=== PATIENT | male | born 1970 | race Asian ===

== ENCOUNTER 2016-11-08 11:03 | Observation (INO) | payer BC ==
[2016-11-08 12:48] LABS: Hematocrit 46 % (42-52); Hemoglobin 14.7 g/dl (14.0-18.0); Mean Corpuscular HGB Conc 32 g/dl (31-36); Mean Corpuscular Hemoglobin 26 pg (27-31); Mean Corpuscular Volume 81 fL (80-94); Mean Platelet Volume 9 um3 (7.4-10.4); Red Blood Count 5.66 10^6/ul (4.0-5.4); Red Cell Distribution Width 13 % (10.5-15)
[2016-11-08 12:56] LABS: Urine Bilirubin Negative (Negative); Urine Glucose Negative (Negative); Urine Nitrite Negative (Negative)
[2016-11-08 13:01] LABS: ALT 30 U/L (7-52); AST 25 U/L (13-39); Albumin 4.5 g/dL (3.2-5.2); Alkaline Phosphatase 65 U/L (34-104); Anion Gap 7 mmol/L (2-11); BUN/Creatinine Ratio 15.5 (8-20); Blood Urea Nitrogen 15 mg/dL (6-24); C Reactive Protein < 1.00 mg/L (< 5.00); CO2 Carbon Dioxide 27 mmol/L (22-32); Calcium 9.2 mg/dL (8.6-10.3); Chloride 104 mmol/L (101-111); Creatine Kinase 118 U/L (10-223); EGFR African American 106.7 (>60); Globulin 3.2 g/dL (2-4); Glucose 93 mg/dL (70-100); Magnesium 2.1 mg/dL (1.9-2.7); Potassium 3.7 mmol/L (3.5-5.0); Sodium 138 mmol/L (133-145); Total Protein 7.7 g/dL (6.4-8.9)
[2016-11-08 13:17] LABS: Benzodiazepine Urine Screen None Detected (None Detect)
--- NOTE | 2016-11-08 13:34 | RAD ---
HISTORY: Ataxia COMPARISONS: MRI dated October 16, 2016 TECHNIQUE: Multiple contiguous axial CT scans were obtained of the head without intravenous contrast. FINDINGS: HEMORRHAGE/INFARCT: There is no hemorrhage or acute infarct. MASSES/SHIFT: There is no mass or shift. EXTRA-AXIAL SPACES: There are no extra-axial fluid collections. SULCI AND VENTRICLES: The sulci and ventricles are normal in size and position for the patient's stated age. CEREBRUM: There is stable low-attenuation of the left insula corresponding to the findings noted on previous MRI. BRAINSTEM: There are no focal parenchymal abnormalities. CEREBELLUM: There are no focal parenchymal abnormalities. VESSELS: The vessels are grossly normal. PARANASAL SINUSES: The paranasal sinuses are clear. ORBITS: The orbits are unremarkable. BONES AND SOFT TISSUE: No bone or soft tissue abnormalities are noted. OTHER: None IMPRESSION: STABLE PARENCHYMAL CHANGES OF THE LEFT INSULA, UNCHANGED FROM PREVIOUS MRI. NO ACUTE INTRACRANIAL PATHOLOGY.
[2016-11-08 13:35] LABS: TSH (Thyroid Stimulating Horm) 1.28 mcIU/mL (0.34-5.60)
[2016-11-08] MEDS ORDERED: Acetaminophen TAB* 325 MG PO PRN (14:25)
[2016-11-08] MEDS ORDERED: NS 0.9% 1000 ML* 1,000 ML IV SCH (14:30)
[2016-11-08] MEDS ORDERED: Gadoteridol* (CONTRAST) 279.3 MG/ML 10 ML IV ONE (15:06)
--- NOTE | 2016-11-08 15:20 | CONS ---
CONSULTATION REPORT: DATE OF CONSULT: 11/08/16 PATIENT OF: Dr. San, Dr. Mata, Dr. Araujo. HISTORY OF PRESENT ILLNESS: This is a 46-year-old right-handed man who, in July, had onset, first in his foot, of clumsiness and weakness, then in his hand, with some mild speech difficulties appare ntly that then resolved, but had a workup, which included an abnormal MRI scan. He had seen Dr. Constantin colón, but they noticed, in September, the workup is incomplete, but he was then referred to Dr. Araujo f or this lesion. The MRI scan showed, which I have also reviewed and was repeated on 10/16/16, eleva judy T2 FLAIR signal on the left insula and posterior frontal hudson radiata. This was thought to be minimal progression since August 2016 and some minimal enhancement of this lesion. To my eye the le filiberto radiated centrally from the ventricle. He has been in good neurological health up until 9 o'clock this morning when he had sudden onset of dizziness and staggering. He has had some nausea with this. No headache. No numbness or weakness. No visual symptoms. This has persisted to the current time. He feels like he staggers off to eit her side. It is worse with position. He has never had this before. Of note, he is on Eliquis and on aspirin 81 mg every day. He is also on lisinopril half of a 10 mg pill every day, and atorvastatin for apparently hyperlipidemia. He also has an atrial septal defect according to Dr. San's incomplete note. SOCIAL HISTORY: He drinks occasionally. He does not smoke. FAMILY HISTORY: Hypertension in both parents and a stroke in the father. REVIEW OF SYSTEMS: Negative in all 14 spheres other than the HPI. PHYSICAL EXAM: Temperature 98.6, pulse 67, respirations 18, blood pressure 150/92. He is alert and oriented with normal speech and comprehension. There was no nystagmus seen when I evaluated him. C ranial nerves II through XII were intact. Fundi were benign. Motor exam revealed normal tone, stren gth, coordination, normal [id number], no problems with rapid alternating hand movements to eithe r side. When he walked he became vertiginous, but had no nystagmus and no past pointing, but he tend ed to veer in either direction. Per Dr. Mata he tended to go to the right side. Reflexes were 1+ with downgoing toes. Sensation is intact to light touch. Chest: Clear. Cardiovascular: Regular r ate and rhythm. Abdomen is soft, with positive bowel sounds. 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 I do not think that this is what it is going to be the case. I have a call in to Dr. Araujo to see what he had thought of this man . It is possible he is throwing clot from his AFib and if that is the case we will need to pursue t hat further, but low-grade neoplasm is also raised in the differential and I discussed this with Dr. Araujo. I am also concerned if this could be demyelinating disease, to my eye the MRI scan lesion was readily oriented to the ventricle suggesting a single demyelinating spot and depending on what I talk to Dr. Araujo about. I will discuss whether we should get MRI scan with and without contrast as the next step after the CT scan or a CTA looking for arterial thrombosis. Thank you for sharing his case. [id number]/[facility] #: [id number]
--- NOTE | 2016-11-08 15:28 | CONS ---
CONSULTATION: ADDENDUM: DATE OF CONSULTATION: 11/08/[address] Araujo who said that although it is possible that the lesion on MRI scan is a stroke , it does not appear to be, and he is following for a tumor and agrees that MS will be a possibility . Given these concerns, he agrees with the plan of getting an MRI with and without contrast. [id number]/[facility] #: [id number]
--- NOTE | 2016-11-08 15:29 | RAD ---
HISTORY: Dizziness, basilar artery stenosis COMPARISONS: September 19, 2016 TECHNIQUE: 3-D axial [id number] MR angiography was performed of the head to include the skull valley of Christopher. Multiple 3-D maximum intensity projection reconstructions are also submitted for review. FINDINGS: RIGHT VERTEBRAL ARTERY: The distal right vertebral artery is unremarkable, without stenosis. LEFT VERTEBRAL ARTERY: The distal left vertebral artery is unremarkable, without stenosis. DOMINANCE: The vertebral arteries are codominant. DISTAL RIGHT CERVICAL INTERNAL CAROTID ARTERY: The distal right cervical internal carotid artery is unremarkable. DISTAL LEFT CERVICAL INTERNAL CAROTID ARTERY: The distal left cervical internal carotid artery is unremarkable. INTRACRANIAL CIRCULATION: There is no aneurysm, vascular malformation, occlusion, or stenosis of the visualized intracranial circulation. The anterior communicating artery complex is clear. Bilateral posterior communicating arteries are identified. The posterior communicating arteries are dominant over the P1 segments of the posterior cerebral arteries bilaterally. OTHER FINDINGS: None IMPRESSION: NO ANEURYSM, VASCULAR MALFORMATION, OCCLUSION, OR STENOSIS OF THE VISUALIZED INTRACRANIAL CIRCULATION.
--- NOTE | 2016-11-08 15:32 | RAD ---
HISTORY: Dizziness COMPARISONS: November 08, 2016 TECHNIQUE: The following sequences were obtained of the head: Sagittal T1-weighted images, axial T2-weighted images, axial FLAIR images, axial susceptibility weighted images, axial T1-weighted images. Additionally, axial diffusion-weighted images were obtained with calculated apparent diffusion coefficients. Additionally, sagittal, coronal, and axial T1-weighted images were obtained after contrast enhancement with a gadolinium-based intravenous contrast agent. FINDINGS: HEMORRHAGE/INFARCT: There is no hemorrhage or acute infarct. MASSES/SHIFT: There is no mass or shift. EXTRA-AXIAL SPACES/MENINGES: There are no extra-axial fluid collections. SULCI AND VENTRICLES: The sulci and ventricles are normal in size and position for the patient's stated age. CEREBRUM: Again noted is minimally enhancing region of elevated T2/FLAIR signal within the left insula and posterior frontal hudson radiata. This is stable BRAINSTEM: There are no focal parenchymal abnormalities. CEREBELLUM: There are no focal parenchymal abnormalities. The cerebellar tonsils are normal in size and position. SELLA: The sella is normal. PINEAL: The pineal region is clear. CP ANGLE/TEMPORAL BONES: The labyrinthine structures are grossly normal. VESSELS: Normal flow-voids are noted within the visualized vertebral vasculature. DIFFUSION ABNORMALITIES: There are no diffusion abnormalities. PARANASAL SINUSES/MASTOIDS: The paranasal sinuses are clear. ORBITS: The orbits are unremarkable. BONES AND SOFT TISSUE: No bone or soft tissue abnormalities are noted. OTHER: Elsewhere, there is no abnormal enhancement IMPRESSION: STABLE MINIMALLY ENHANCING AREA OF ELEVATED T2/FLAIR SIGNAL WITHIN THE LEFT INSULA AND POSTERIOR FRONTAL HUDSON RADIATA
--- NOTE | 2016-11-08 18:14 | HP ---
CC: Mya Arshad MD; Dr. Ruiz; Dr. San; Dr. Araujo from Neurosurgery Department at [facility]; Dr. Pope * HISTORY AND PHYSICAL: DATE OF ADMISSION: 11/08/16 PRIMARY CARE PROVIDER: Mya Arshad MD. CHIEF COMPLAINT: Unsteady gait and dizziness. HISTORY OF PRESENT ILLNESS: Mr. Maria is a 46-year-old male who has history of hypertension and TIA in July 2016. During further evaluation as of the cause of the TIA, the patient had a Holter monitor that showed an episode of atrial fibrillation and in September 2016, the patient was placed on Eliquis for anticoagulation. 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 A followup MRI obtained on 10/16/16, though showed "elevated T2 FLAIR signal within the left insula and posterior frontal hudson radiata. There has been minimal progression compared with August 2016. There is minimal linear subcortical enhancement in the region as well." It was noted that the etiology was unclear, but differential included focal encephalitis and/or vasculitis, low-grade neoplasm or demyelinating disease, but less likely a subacute infarct. Dr. San saw the patient for neurology followup and recommended Neurosurgery evaluation which happened actually yesterday. Dr. Araujo saw the patient from Neurosurgery and noted that the etiology of the patient's MRI abnormality is unclear and recommended a followup MRI in 4 months. The patient had been feeling at his baseline. His symptoms that occurred in July 2016 resolved within 8 hours and were noted to be right-sided weakness and expressive aphasia. Since then, the patient had been doing fine. Once again, started on Eliquis in September. Today in the morning, the patient was working at [employer] at the [employer]. He stated he was walking around and all of a sudden, he noticed being very dizzy and nauseated. He came in to the ED for evaluation. Here, he noted to have ataxic gait. He is no longer complaining of nausea. The patient was seen by Dr. Ruiz in consultation. Dr. Ruiz recommended an MRI of the brain as well as MRA of the head and observation. PAST MEDICAL HISTORY: 1. History of abnormality in the left insular region and the patient's brain as mentioned above with the differential as mentioned above including demyelinating disease, low-grade neoplasm, less likely an old stroke. 2. History of paroxysmal atrial fibrillation, on Eliquis. 3. Hypertension. MEDICATIONS: Include: 1. Eliquis 5 mg b.i.d. 2. Lisinopril 5 mg daily. 3. Lipitor 20 mg daily. ALLERGIES: No known drug allergies. FAMILY HISTORY: Positive for father with hypertension and stroke. Mother with stroke at the age of 6363 years old who was of it. SOCIAL HISTORY: The patient lives with his . He works at [employer] in [employer]. He has no history of tobacco use. He drinks alcoholic beverages occasionally. His surrogate is his . He is originally from [facility]. REVIEW OF SYSTEMS: Please see history of present illness. In addition to the above mentioned, the patient complains of no headache. No double vision. He denies any one-sided weakness. He states that his dizziness feels as if you were "on a ship." He denies nausea, although he had nausea earlier in the morning. He denies any abdominal pain. All the remaining 14 systems were reviewed with the patient and were otherwise negative. PHYSICAL EXAMINATION GENERAL: The patient is a very pleasant 46-year-old male who is in no acute distress. Alert, awake, and oriented x3. VITAL SIGNS: Blood pressure of 125/88, heart rate of 59 and regular, respiratory rate 16, O2 saturation 100% on room air, temperature 98.5. HEENT: Head: Atraumatic, normocephalic. Eyes: Pupils equal, reactive to light and accommodation. Oropharynx clear. Mucosa moist. NECK: Supple. No JVD, no bruit bilaterally. RESPIRATORY: Clear to auscultation bilaterally. CARDIOVASCULAR: Regular rate and rhythm. No murmur. ABDOMEN: Soft, nontender. Bowel sounds present in all 4 quadrants. EXTREMITIES: There is no edema. Pulses are +2 bilaterally. No clubbing or cyanosis. NEUROLOGIC EVALUATION: Speech clear. Cranial nerves II through XII grossly intact. Motor strength is 5/5 bilaterally. There was no nystagmus on extraocular muscles evaluation. Vnbgda-ol-ppuv is not dysmetric bilaterally. There is no pronator drift. Ffva-ia-cuzt is not dysmetric bilaterally. The patient has a wide ataxic gait. Sensation is grossly intact. PSYCHIATRIC EVALUATION: Oriented x2. No evidence of anxiety or depression. LABORATORY DATA/DIAGNOSTIC STUDIES: Showed a white blood cell count of 5.0, hemoglobin of 14.7, hematocrit of 46, platelets of 206,000. Sodium of 138, potassium 3.7, chloride 104, carbon dioxide 27, BUN 15, creatinine 0.97. Liver function tests unremarkable. C-reactive protein of below 1. Brain natriuretic peptide was 51. TSH of 1.28. Brain MRI, impression: "Stable minimally enhancing area of elevated T2 FLAIR signal within the left insula and posterior frontal hudson radiata." Head MRA, impression: "No aneurysm, vascular malformation, occlusion, or stenosis of the visualized intracranial circulation." Brain CT, impression: "Stable parenchymal changes of the left insula. Unchanged from previous MRI. No acute intracranial pathology." ASSESSMENT AND PLAN: A 46-year-old male with history of abnormality on the MRI of the brain dating back to August 2016, who presents to the hospital with ataxic gait. At this time, the patient is going to be placed on overnight observation with neuro checks every 2 hours. He is going to be continued on Eliquis as previously taken. Dr. Ruiz saw the patient in evaluation and the case was discussed with Neurology. In regards to history of paroxysmal atrial fibrillation, today's EKG showed the patient to be in sinus rhythm with a heart rate of 60 beats per minute with J- point elevation. At this point, the patient is going to be placed on telemetry monitored bed. We will continue Eliquis. In regards to dyslipidemia, the patient's LDL levels were not checked yet and I am going to do it tomorrow. We will continue the patient on his Lipitor. For DVT prophylaxis, the patient is fully anticoagulated with Eliquis. Code status: The patient's code status is full. The patient's surrogate is his . TIME SPENT: Approximately 72 minutes were spent on admission of this patient, more than half that time was spent dnsj-au-cucw with the patient during the interview and physical exam. [id number]/[facility] #: [id number] LATOYA
[2016-11-08] MEDS: Apixaban* 5 MG TAB PO SCH (21:12)
[2016-11-08] MEDS ORDERED: Heparin VIAL(*) 5000 UNITS/ML VIAL (FIVE THOUSAND) SUBCUT SCH (22:00)
[2016-11-09 06:59] LABS: Hematocrit 44 % (42-52); Hemoglobin 13.9 g/dl (14.0-18.0); Mean Corpuscular HGB Conc 32 g/dl (31-36); Mean Corpuscular Hemoglobin 26 pg (27-31); Mean Corpuscular Volume 82 fL (80-94); Mean Platelet Volume 9 um3 (7.4-10.4); Red Blood Count 5.38 10^6/ul (4.0-5.4); Red Cell Distribution Width 13 % (10.5-15)
[2016-11-09 07:07] LABS: BUN/Creatinine Ratio 16.7 (8-20); Calcium 8.9 mg/dL (8.6-10.3); HDL Cholesterol 49.4 mg/dL; Potassium 3.8 mmol/L (3.5-5.0)
[2016-11-09 08:40] VITALS: BP 117/75
[2016-11-09] MEDS ORDERED: Aspirin EC Low Dose* 81 MG TAB.EC PO SCH (09:00)
[2016-11-09] MEDS ORDERED: Atorvastatin* 20 MG TAB PO SCH (09:00)
[2016-11-09] MEDS: Apixaban* 5 MG TAB PO SCH (09:03)
--- NOTE | 2016-11-09 10:04 | PN ---
Subjective Date of Service: 11/09/16 Interval History: Mr. Maria states that he is feeling very well this morning. He has had no further dizziness and is ambulating on the unit without difficulty. He denies chest pain, SOB, nausea, or abdominal pain. Objective Active Medications: Acetaminophen (Tylenol Tab*) 650 mg PO Q4H PRN Apixaban (Eliquis*) 5 mg PO BID JULES Atorvastatin Calcium (Lipitor*) 20 mg PO DAILY JULES Sodium Chloride (Ns 0.9% 1000 Ml*) 1,000 mls @ 125 mls/hr IV PER RATE [facility] Vital Signs 11/08/16 11/08/16 11/08/16 14:00 16:10 19:26 Temperature 98.5 F 98.3 F Pulse Rate 57 59 59 Respiratory 19 16 16 Rate Blood Pressure 119/71 125/88 118/71 (mmHg) O2 Sat by Pulse 99 100 99 Oximetry 11/08/16 11/08/16 11/09/16 20:00 23:28 03:19 Temperature 98.9 F 98.3 F Pulse Rate 52 53 Respiratory 16 16 16 Rate Blood Pressure 105/63 119/76 (mmHg) O2 Sat by Pulse 99 100 Oximetry 11/09/16 07:17 Temperature 99.2 F Pulse Rate 50 Respiratory 16 Rate Blood Pressure 117/75 (mmHg) O2 Sat by Pulse 100 Oximetry Oxygen Devices in Use Now: None Appearance: Male lying in bed in NAD Eyes: No Scleral Icterus Ears/Nose/Mouth/Throat: Mucous Membranes Moist Neck: Trachea Midline Respiratory: Symmetrical Chest Expansion and Respiratory Effort, Clear to Auscultation Cardiovascular: NL Sounds; No Murmurs; No JVD, No Edema Abdominal: NL Sounds; No Tenderness; No Distention Lymphatic: No Cervical Adenopathy Extremities: No Edema Skin: No Rash or Ulcers Neurological: Alert and Oriented x 3, NL Muscle Strength and Tone Nutrition: Taking PO's Result Diagrams: 11/09/16 05:54 11/09/16 05:54 Assess/Plan/Problems-Billing Assessment: Mr. Maria is a 46 yo male with a PMH of known MRI abnormality in left insular region as well as hypertension and paroxysmal afib who was admitted on 11/07/16 with concern for dizziness and gait ataxia. - Patient Problems (1) Dizziness Comment: Resolved. Suspect BPPV or labrynthitis. Appreciate neuro consult. MRI brain with unchanged flair signal in the left insular region. Patient following with Dr. Araujo with repeat MRI in 4 months to re-eval this area. No indication that this is a new stroke or responsible for his self-limited episode of dizziness. (2) Afib Comment: Patient in sinus rhythm. Continue eliquis. (3) DVT prophylaxis Comment: Eliquis (4) Full code status (5) Hypertension Comment: SBP well controlled. Resume lisinopril. Status and Disposition: OBV. Discharge to home.
--- NOTE | 2016-11-09 16:28 | DS ---
CC: Dr. Arshad; Dr. Araujo from Neurosurgery Department, [facility] * DISCHARGE SUMMARY: DATE OF ADMISSION: 11/08/16 DATE OF DISCHARGE: 11/09/16 PRIMARY CARE PHYSICIAN: Dr. Arshad. ATTENDING PHYSICIAN: Dr. Marielena Garcia * (dictation provided by Cierra Gerber NP ). PRIMARY DIAGNOSIS: Dizziness with suspected benign paroxysmal positional vertigo. SECONDARY DIAGNOSES: 1. History of abnormality in the left insular region, with differential diagnosis including demyelinating disease, low-grade neoplasm or less likely old stroke. 2. History of paroxysmal atrial fibrillation, on Eliquis. 3. Hypertension. MEDICATIONS AT THE TIME OF DISCHARGE: 1. Eliquis 5 mg p.o. b.i.d. 2. Lisinopril 5 mg daily. 3. Lipitor 20 mg daily. HOSPITAL COURSE: Mr. Maria is a 46-year-old male with past medical history as mentioned above, who presented to the hospital on 11/08/16 with concern for unsteady gait and dizziness. Please see the dictated H and P by Raiza Perez for complete details. In brief, the patient had known abnormality on MRI, showing elevated FLAIR signal in the left insular region and is following with Dr. Araujo in [place] with plans for repeat MRI in 4 months. On the day of admission, the patient developed dizziness with nausea and gait ataxia and therefore, presented to the emergency room. Mr. Maria was admitted to the hospital. He had a brain MRI, which was read as follows: "Stable, minimally enhancing area of elevated T2 FLAIR signal within the left insula and posterior frontal hudson radiata". CT brain was read as follows: "Stable parenchymal changes in the left insula, unchanged from previous MRI. No acute intracranial pathology." Head MRA was read as follows: "No aneurysm, vascular malformation, occlusion or stenosis of the visualized intracranial circulation." Patient's laboratory data revealed no acute abnormalities. His vital signs were stable. He was not orthostatic. Mr. Maria was observed in the hospital overnight. This morning, he is feeling much better. He has no dizziness. He has no lightheadedness. He is ambulating on the unit independently without gait ataxia. Given the self- limited nature of his symptoms, I suspect that perhaps he has benign paroxysmal positional vertigo or perhaps a case of labyrinthitis. Regardless, the patient' s signs and symptoms have resolved. During this hospitalization, he did receive consultation from Dr. Norman Ruiz from our neurological team. He recommended the MRI/MRA, which were completed, and showed no acute abnormality, and he also spoke with Dr. Araujo's office and verified that the plan was for the patient to follow up there in 4 months for MRI of the brain. Mr. Maria is medically stable for discharge to home today. DISPOSITION: Home. DIET: Low salt. ACTIVITY: As tolerated. FOLLOWUP PLANS: Please follow up with Dr. Araujo as arranged, in 4 months, for a repeat MRI of the brain to evaluate FLAIR signal noted in the left insular region. TIME SPENT: Approximately 60 minutes were spent on the discharge of this patient, more than the half the time was spent with the patient at the bedside reviewing the events leading up to this hospitalization, performing the physical examination, and reviewing my plan of care. CIERRA GERBER NP [id number]/[facility] #: [id number] LATOYA
--- NOTE | 2016-11-09 17:03 | ED ---
Asha Calderón Rebecca, scribed for Kostas Mata MD on 11/08/16 at 1143 . Dizziness - HPI Summary HPI Summary: Pt is a 46 y/o M who presents to ED c/o moderate dizziness. Episode occurred suddenly at 0900 while at work, working on a machine. Dizziness has been constant since onset. Sx aggravated by moving his head, alleviated by laying back and closing eyes. Denies SCHOFIELD. PMHx HTN, TIA. TIA was in July, he had a follow up MRI yesterday in [place], [place] with Dr. Araujo. - History Of Current Complaint Chief Complaint: EDDizziness Stated Complaint: DIZZINESS Time Seen by Provider: 11/08/16 11:29 Hx Obtained From: Patient Onset/Duration: Still Present, Suddenly Timing: Constant Severity Initially: Moderate Severity Currently: Moderate Character: Dizzy Aggravating Factor(s): Change In Head Position Alleviating Factor(s): Lying Down, Closing Eyes Associated Signs And Symptoms: Positive: Negative - Allergies/Home Medications Allergies/Adverse Reactions: Allergies Allergy/AdvReac Type Severity Reaction Status Date / Time No Known Allergies Allergy Verified 09/20/16 14:57 PMH/Surg Hx/FS Hx/Imm Hx Endocrine/Hematology History: Denies: Hx Diabetes Cardiovascular History: Reports: Hx Atrial Fibrillation, Hx Hypertension Denies: Hx Pacemaker/ICD History: Denies: Hx Renal Disease Sensory History: Denies: Hx Hearing Aid Neurological History: Reports: Hx Transient Ischemic Attacks (TIA) Psychiatric History: Denies: Hx Panic Disorder Infectious Disease History: Denies: Traveled Outside the [place] in Last 30 Days - Family History Known Family History: Positive: Other - stroke (mother) - Social History Occupation: Employed Full-time Alcohol Use: Occasionally Hx Substance Use: No Substance Use Type: Reports: None Smoking Status (MU): Never Smoked Tobacco Review of Systems Constitutional: Negative Eyes: Negative ENT: Negative Cardiovascular: Negative Respiratory: Negative Gastrointestinal: Negative Genitourinary: Negative Musculoskeletal: Negative Skin: Negative Neurological: Other - Dizziness Negative: Headache Psychological: Normal All Other Systems Reviewed And Are Negative: Yes Physical Exam - Summary Physical Exam Summary: VITAL SIGNS: Reviewed. GENERAL: ~Patient is a well-developed and nourished male who is lying comfortable in the stretcher. ~Patient is not in any acute respiratory distress. HEAD AND FACE: No signs of trauma. ~No ecchymosis, hematomas or skull depressions. No sinus tenderness. EYES: PERRLA, EOMI x 2, No injected conjunctiva, no nystagmus. No photophobia. EARS: Hearing grossly intact. Ear canals and tympanic membranes are within normal limits. MOUTH: Oropharynx within normal limits. NECK: Supple, trachea is midline, no adenopathy, no JVD, no carotid bruit, no c- spine tenderness, neck with full ROM. No meningeal signs, no Kernig's or brudzinskis signs. CHEST: Symmetric, no tenderness at palpation LUNGS: Clear to auscultation bilaterally. No wheezing or crackles. CVS: Regular rate and rhythm, S1 and S2 present, no murmurs or gallops appreciated. ABDOMEN: Soft, non-tender. No signs of distention. No rebound no guarding, and no masses palpated. Bowel sounds are normal. EXTREMITIES: FROM in all major joints, no edema, no cyanosis or clubbing. NEURO: Alert and oriented x 3. No acute neurological deficits except ataxia on ambulation. Speech is normal and follows commands. SKIN: Dry and warm ~ Triage Information Reviewed: Yes Vital Signs On Initial Exam: Initial Vitals BP 134/78 11/08/16 11:37 Vital Signs Reviewed: Yes Diagnostics - Vital Signs Vital Signs Temp Pulse Resp BP Pulse Ox 11/08/16 13:30 59 18 116/78 99 11/08/16 13:00 58 20 115/64 99 11/08/16 12:44 22 156/77 11/08/16 12:15 67 150/92 11/08/16 12:13 61 16 150/92 99 11/08/16 12:11 58 19 130/84 99 11/08/16 12:07 98.6 F 56 18 129/88 98 11/08/16 12:03 96 99 11/08/16 12:02 129/88 11/08/16 11:57 98.6 F 56 18 129/88 98 11/08/16 11:40 54 100 11/08/16 11:39 58 100 11/08/16 11:37 134/78 - Laboratory Lab Results: Lab Results 11/08/16 11/08/16 11/08/16 Range/Units 12:25 12:33 12:33 WBC 5.0 (3.5-10.8) 10^3/ul RBC 5.66 H (4.0-5.4) 10^6/ul Hgb 14.7 (14.0-18.0) g/dl Hct 46 (42-52) % MCV 81 (80-94) fL MCH 26 L (27-31) pg MCHC 32 (31-36) g/dl RDW 13 (10.5-15) % Plt Count 206 (150-450) 10^3/ul MPV 9 (7.4-10.4) um3 Neut % (Auto) 64.8 (38-83) % Lymph % (Auto) 26.1 (25-47) % [place] % (Auto) 7.1 (1-9) % Eos % (Auto) 1.1 (0-6) % Baso % (Auto) 0.9 (0-2) % Absolute Neuts (auto) 3.2 (1.5-7.7) 10^3/ul Absolute Lymphs (auto) 1.3 (1.0-4.8) 10^3/ul Absolute Monos (auto) 0.4 (0-0.8) 10^3/ul Absolute Eos (auto) 0.1 (0-0.6) 10^3/ul Absolute Basos (auto) 0 (0-0.2) 10^3/ul Absolute Nucleated RBC 0 10^3/ul Nucleated RBC % 0 APTT (26.0-36.3) seconds Carbon Monoxide Screen (<3.5) % Sodium 138 (133-145) mmol/L Potassium 3.7 (3.5-5.0) mmol/L Chloride 104 (101-111) mmol/L Carbon Dioxide 27 (22-32) mmol/L Anion Gap 7 (2-11) mmol/L BUN 15 (6-24) mg/dL Creatinine 0.97 (0.67-1.17) mg/dL Est GFR ( Amer) 106.7 (>60) Est GFR (Non-Af Amer) 83.0 (>60) BUN/Creatinine Ratio 15.5 (8-20) Glucose 93 (70-100) mg/dL Lactic Acid (0.5-2.0) mmol/L Calcium 9.2 (8.6-10.3) mg/dL Magnesium 2.1 (1.9-2.7) mg/dL Total Bilirubin 0.60 (0.2-1.0) mg/dL AST 25 (13-39) U/L ALT 30 (7-52) U/L Alkaline Phosphatase 65 (34-104) U/L Total Creatine Kinase 118 (10-223) U/L Troponin I 0.00 (<0.04) ng/mL C-Reactive Protein < 1.00 (< 5.00) mg/L B-Natriuretic Peptide ( - 100) pg/mL Total Protein 7.7 (6.4-8.9) g/dL Albumin 4.5 (3.2-5.2) g/dL Globulin 3.2 (2-4) g/dL Albumin/Globulin Ratio 1.4 (1-3) TSH 1.28 (0.34-5.60) mcIU/mL Urine Color Straw Urine Appearance Clear Urine pH 7.0 (5-9) Ur Specific [place] 1.004 L (1.010-1.030) Urine Protein Negative (Negative) Urine Ketones Negative (Negative) Urine Blood Negative (Negative) Urine Nitrate Negative (Negative) Urine Bilirubin Negative (Negative) Urine Urobilinogen Negative (Negative) Ur Leukocyte Esterase Negative (Negative) Urine Glucose Negative (Negative) Urine Opiates Screen (None Detect) Ur Barbiturates Screen (None Detect) Ur Phencyclidine Scrn (None Detect) Ur Amphetamines Screen (None Detect) U Benzodiazepines Scrn (None Detect) Urine Cocaine Screen (None Detect) U Cannabinoids Screen (None Detect) 11/08/16 11/08/16 11/08/16 Range/Units 12:33 12:33 12:33 WBC (3.5-10.8) 10^3/ul RBC (4.0-5.4) 10^6/ul Hgb (14.0-18.0) g/dl Hct (42-52) % MCV (80-94) fL MCH (27-31) pg MCHC (31-36) g/dl RDW (10.5-15) % Plt Count (150-450) 10^3/ul MPV (7.4-10.4) um3 Neut % (Auto) (38-83) % Lymph % (Auto) (25-47) % [place] % (Auto) (1-9) % Eos % (Auto) (0-6) % Baso % (Auto) (0-2) % Absolute Neuts (auto) (1.5-7.7) 10^3/ul Absolute Lymphs (auto) (1.0-4.8) 10^3/ul Absolute Monos (auto) (0-0.8) 10^3/ul Absolute Eos (auto) (0-0.6) 10^3/ul Absolute Basos (auto) (0-0.2) 10^3/ul Absolute Nucleated RBC 10^3/ul Nucleated RBC % APTT 36.1 (26.0-36.3) seconds Carbon Monoxide Screen (<3.5) % Sodium (133-145) mmol/L Potassium (3.5-5.0) mmol/L Chloride (101-111) mmol/L Carbon Dioxide (22-32) mmol/L Anion Gap (2-11) mmol/L BUN (6-24) mg/dL Creatinine (0.67-1.17) mg/dL Est GFR ( Amer) (>60) Est GFR (Non-Af Amer) (>60) BUN/Creatinine Ratio (8-20) Glucose (70-100) mg/dL Lactic Acid 1.6 (0.5-2.0) mmol/L Calcium (8.6-10.3) mg/dL Magnesium (1.9-2.7) mg/dL Total Bilirubin (0.2-1.0) mg/dL AST (13-39) U/L ALT (7-52) U/L Alkaline Phosphatase (34-104) U/L Total Creatine Kinase (10-223) U/L Troponin I (<0.04) ng/mL C-Reactive Protein (< 5.00) mg/L B-Natriuretic Peptide 51 ( - 100) pg/mL Total Protein (6.4-8.9) g/dL Albumin (3.2-5.2) g/dL Globulin (2-4) g/dL Albumin/Globulin Ratio (1-3) TSH (0.34-5.60) mcIU/mL Urine Color Urine Appearance Urine pH (5-9) Ur Specific [place] (1.010-1.030) Urine Protein (Negative) Urine Ketones (Negative) Urine Blood (Negative) Urine Nitrate (Negative) Urine Bilirubin (Negative) Urine Urobilinogen (Negative) Ur Leukocyte Esterase (Negative) Urine Glucose (Negative) Urine Opiates Screen (None Detect) Ur Barbiturates Screen (None Detect) Ur Phencyclidine Scrn (None Detect) Ur Amphetamines Screen (None Detect) U Benzodiazepines Scrn (None Detect) Urine Cocaine Screen (None Detect) U Cannabinoids Screen (None Detect) 11/08/16 11/08/16 Range/Units 12:33 12:48 WBC (3.5-10.8) 10^3/ul RBC (4.0-5.4) 10^6/ul Hgb (14.0-18.0) g/dl Hct (42-52) % MCV (80-94) fL MCH (27-31) pg MCHC (31-36) g/dl RDW (10.5-15) % Plt Count (150-450) 10^3/ul MPV (7.4-10.4) um3 Neut % (Auto) (38-83) % Lymph % (Auto) (25-47) % [place] % (Auto) (1-9) % Eos % (Auto) (0-6) % Baso % (Auto) (0-2) % Absolute Neuts (auto) (1.5-7.7) 10^3/ul Absolute Lymphs (auto) (1.0-4.8) 10^3/ul Absolute Monos (auto) (0-0.8) 10^3/ul Absolute Eos (auto) (0-0.6) 10^3/ul Absolute Basos (auto) (0-0.2) 10^3/ul Absolute Nucleated RBC 10^3/ul Nucleated RBC % APTT (26.0-36.3) seconds Carbon Monoxide Screen <3.5 (<3.5) % Sodium (133-145) mmol/L Potassium (3.5-5.0) mmol/L Chloride (101-111) mmol/L Carbon Dioxide (22-32) mmol/L Anion Gap (2-11) mmol/L BUN (6-24) mg/dL Creatinine (0.67-1.17) mg/dL Est GFR ( Amer) (>60) Est GFR (Non-Af Amer) (>60) BUN/Creatinine Ratio (8-20) Glucose (70-100) mg/dL Lactic Acid (0.5-2.0) mmol/L Calcium (8.6-10.3) mg/dL Magnesium (1.9-2.7) mg/dL Total Bilirubin (0.2-1.0) mg/dL AST (13-39) U/L ALT (7-52) U/L Alkaline Phosphatase (34-104) U/L Total Creatine Kinase (10-223) U/L Troponin I (<0.04) ng/mL C-Reactive Protein (< 5.00) mg/L B-Natriuretic Peptide ( - 100) pg/mL Total Protein (6.4-8.9) g/dL Albumin (3.2-5.2) g/dL Globulin (2-4) g/dL Albumin/Globulin Ratio (1-3) TSH (0.34-5.60) mcIU/mL Urine Color Urine Appearance Urine pH (5-9) Ur Specific [place] (1.010-1.030) Urine Protein (Negative) Urine Ketones (Negative) Urine Blood (Negative) Urine Nitrate (Negative) Urine Bilirubin (Negative) Urine Urobilinogen (Negative) Ur Leukocyte Esterase (Negative) Urine Glucose (Negative) Urine Opiates Screen None detected (None Detect) Ur Barbiturates Screen None detected (None Detect) Ur Phencyclidine Scrn None detected (None Detect) Ur Amphetamines Screen None detected (None Detect) U Benzodiazepines Scrn None detected (None Detect) Urine Cocaine Screen None detected (None Detect) U Cannabinoids Screen None detected (None Detect) Result Diagrams: 11/09/16 05:54 11/09/16 05:54 Lab Statement: Any lab studies that have been ordered have been reviewed, and results considered in the medical decision making process. - CT Brain CT CT Interpretation: No Acute Changes - STABLE PARENCHYMAL CHANGES OF THE LEFT INSULA, UNCHANGED FROM PREVIOUS MRI. NO ACUTE INTRACRANIAL PATHOLOGY. 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: Both Correctly Best Gaze (Only Horizontal Eye Movement): Normal Visual Field Testing: No Visual Loss Facial Paresis-Pt to Smile & Close Eyes or Grimace Symmetry: Normal/Symmetrical Motor Function - Right Arm: No Drift-Holds 10 Seconds Motor Function - Left Arm: No Drift-Holds 10 Seconds Motor Function - Right Leg: No Drift-Holds 10 Seconds Motor Function - Left Leg: No Drift-Holds 10 Seconds Limb Ataxia-Must be out of Proportion to Weakness Present: Present in One Limb - Only in the LE - on ambulation Sensory (Use Pinprick to Test Arms/Legs/Trunk/Face): Normal Best Language (Describe Picture, Name Items): No Aphasia Dysarthria (Read Several Words): Normal Extinction and Inattention: No Abnormality Total Score: 1 Dizzy Course/Dx - Course Assessment/Plan: Pt is a 46 y/o M who presents to ED c/o moderate dizziness. Episode occurred suddenly at 0900 while at work, working on a machine. Dizziness has been constant since onset. Sx aggravated by moving his head, alleviated by laying back and closing eyes. Denies SCHOFIELD. PMHx HTN, TIA. TIA was in July, he had a follow up MRI yesterday in [place], [place] with Dr. Araujo. Test results WNL. UA negative for UTI and negative urine toxicology. Head CT shows stable parenchymal changes of the L insula, unchanged from previous MRI. After is was observed that the patient had ataxia and unsteady gait, I immediately disclosed the case with Dr. Ruiz from neurology who came and examined the patient. He wanted an MRI with and w/o contrast of the brain, seeing as he thinks the patient is to be r/o CVA v. MS. He also reports to admit the patient to hospital services for further workup and management. I disclosed the case with Dr. Perez who accepted the patient for admission. He is hemodynamically stable and AxOX3. - Diagnoses Differential Diagnosis/HQI/PQRI: CVA, Seizure, Transient Ischemic Attack, Vasovagal Reaction Provider Diagnoses: Ataxia, r/o CVA vs. MS - Provider Notifications Discussed Care Of Patient With: Norman Ruiz Time Discussed With Above Provider: 12:14 - Paged at [phone] Instructed by Provider To: Other - Requested a STAT MRI both with and without contrast. He will evaluate pt in the ED soon. Upon evaluation, at 1238, Dr. Ruiz states that the patient told him he is on Eliquis for A Fib and requested a CT Brain. Discussed care of patient with Dr. Ruiz again after evaluation of the patient and advises admission. Discussed care of patient with Dr. Kyle Perez at 1339 who accepts patient for admission. Discharge - Discharge Plan Condition: Stable Disposition: ADMITTED TO [facility] The documentation as recorded by the Asha elias Rebecca accurately reflects the service I personally performed and the decisions made by , Kostas Mata MD.
== END 2016-11-09 11:10 | disposition home or self-care (01) ==
LOC: ED 11:03 → MEDTELE 13:50
PROVIDERS: ADMIT Internal Medicine; ATTEND Hospitalist
DX: R42 Dizziness and giddiness (principal); I48.0 Paroxysmal atrial fibrillation; Z79.01 Long term (current) use of anticoagulants; I10 Essential (primary) hypertension; R26.9 Unspecified abnormalities of gait and mobility; Z79.899 Other long term (current) drug therapy; R00.1 Bradycardia, unspecified; Z86.73 Personal history of transient ischemic attack (TIA), and cerebral infarction without residual deficits
CPT/HCPCS: 36415; 70450; 70544; 70553; 80048; 80053; 80061; 80307; 81003; 82375; 82550; 83605; 83735; 83880; 84443; 84484; 85025; 85730; 86140; 93005; 96360; 96361; 99283; A9579; G0378